=== PATIENT | female | born 1950 | race Caucasian/White ===

== ENCOUNTER → 2019-09-26 | Day surgery (SDC) | payer MEDICARE ==
[~2019-09-26] VITALS: Ht 167.6 cm; Wt 62.3 kg
[~2019-09-26] MED LIST: BUPIVACAINE MPF 0.5% 30 ML VIAL. ONE; CEPH250C PO; DEXAMETHASONE SOD PHOS 4 MG/ML VIAL ONE; DONE10TA7 PO; GABA600T7 PO; HYDR-2759 PO; HYDR-3165 PO; HYDROcodone/APAP 7.5/325MG 1 TAB TABLET PO ONE; HYDROmorphone 2 MG/ML VIAL IV PRN; IV RINGERS,LACTATED 1000ML 1,000 ML IV SCH; LABETALOL 20 MG/4 ML DISP.SYRIN. IVP PRN; LIDOCAINE 1% PF 2 ML VIAL. ID PRN; LIDOCAINE 2% PF 5 ML VIAL. ONE; MEMA10TA PO; MORPHINE SULFATE 2 MG/ML VIAL. IV PRN; MORPHINE SULFATE 5 MG, KETOROLAC 30MG VIAL 30 MG, ROPIVacaine 0.5% PF 60 ML, EPINEPHrin... INT ART ONE; ONDA4TAB7 PO; ONDANSETRON PF 4 MG/2 ML VIAL. ONE; PROP10TA PO; PROPOFOL 20 ML IV ONE; QUET25TA5 PO; SEVOFLURANE > 120 MINUTES. IH ONE; TRAZ-118 PO; VORT10TA PO; fentaNYL PF VIAL 100 MCG/2 ML VIAL IV PRN; fentaNYL PF VIAL 100 MCG/2 ML VIAL ONE
--- NOTE | 2019-09-26 19:51 | DISCH ---
DISCHARGE INSTRUCTIONS Condition on Discharge Condition on Discharge: Stable Activity After Discharge Activity Instructions for Disc: Other, see below (fine motor use of right hand such as eating doing her hair and other light activities no hard grasping or lifting) Lifting Instructions after Dis: No heavy lifting, No pulling or pushing Diet after Discharge Diet after Discharge: Regular Wound Incision Care Wound/Incision Care: Do not change dressing (keep dressing dry in shower until follow-up visit) Contacting the after DC Call your doctor for: Concerns you may have Follow-Up Follow up with: Dr. Nowak 1 week DUSTY NOWAK MD Sep 26, 2019 19:51
--- NOTE | 2019-09-26 20:01 | PDOC4 ---
Operative Note Operative Note Date of surgery: 09/26/2019 Preoperative diagnosis: Displaced angulated right distal radius fracture Postoperative diagnosis: Same with instability due to comminution Operative procedure: Operative reduction internal locking plate and screw fixation of extra-articular right distal radius fracture Surgeon: Eliu Assist: Chai Muñiz nurse practitioner Anesthesia: Gen. Estimated blood loss: 5 mL Complications: None Operative indications: Patient is a 69-year-old female that presented to our office yesterday with a displaced distal radius fracture very painful although it was splinted. I had gone over with the patient and her the unacceptable angulation and displacement of the fracture and the possibility of closed reduction and pinning versus open reduction fixation depending on the quality and stability of the reduction. We talked about the possibility of nonhealing or fracture displacement possibility of infection nerve or blood vessel damage ongoing stiffness medical or other anesthetic complications among others and they wish to proceed with surgical evaluation and treatment as above Operative text: Patient was identified procedure verified patient placed in the supine position on the operating table. After adequate amounts of general anesthesia were administered the right upper extremity was prepped and draped in standard sterile fashion with an upper arm tourniquet. After timeout was performed patient procedure identified and verified closed reduction was attempted under fluoroscopic guidance but not only was the reduction difficult it appeared comminuted and unstable unsuitable for pinning. Therefore the right upper extremity was exsanguinated by Esmarch bandage tourniquet inflated to 250 mmHg a volar Abdifatah approach was carried out to the right distal radius subperiosteal dissection was carried out and open reduction was carried out with a standard length and with Salud volar distal radius locking plate. A single shaft screw was placed in the sliding hole for provisional fixation and due to the gross instability of the fracture a K wire was placed for distal provisional fixation once the plate was more definitively placed. Distal locking screws were then placed under fluoroscopic guidance the provisional K wire was removed and proximal row locking screws were likewise placed under fluoroscopic guidance and the remainder of nonlocking shaft screws were placed and all hardware was checked under fluoroscopic guidance for length placement and verified to be in satisfactory position with no joint penetration. Thorough irrigation carried out normal saline solution closure accomplished with buried Vicryl suture subcuticular Monocryl Steri-Strips and Mastisol applied followed by sterile dressings and a well-padded volar Ortho-Glass splint and Crow wrap. Fingers noted be warm pink following deflation of tourniquet patient was returned recovery room in stable condition having tolerated the procedure well DUSTY VALDEZ MD Sep 26, 2019 20:01
[2019-09-26] MEDS: fentaNYL PF VIAL 100 MCG/2 ML VIAL IV PRN ×2 (20:12→21:05)
[2019-09-26 20:45] VITALS: BP 166/79
== END ==
LOC: SURG 16:23
PROVIDERS: ATTEND Orthopaedic Surgery
DX: S52.551A Other extraarticular fracture of lower end of right radius, initial encounter for closed fracture (principal); F41.9 Anxiety disorder, unspecified; F03.90 Unspecified dementia, unspecified severity, without behavioral disturbance, psychotic disturbance, mood disturbance, and anxiety; F32.9 Major depressive disorder, single episode, unspecified; X58.XXXA Exposure to other specified factors, initial encounter; Y93.89 Activity, other specified; Y92.89 Other specified places as the place of occurrence of the external cause; Y99.8 Other external cause status; Z87.440 Personal history of urinary (tract) infections; Z98.890 Other specified postprocedural states
CPT/HCPCS: 25607; 76000; A7015; C1713; J0171; J0690; J1100; J1885; J2001; J2270; J2405; J2704; J2795; J3010; J7120; J3490